=== PATIENT | female | born 1990 | race Caucasian/White ===

== ENCOUNTER 2016-12-17 20:57 | Inpatient (IN) | payer OTHER ==
[~2016-12-17] VITALS: Ht 175.3 cm; Wt 91.8 kg
[2016-12-17 21:02] VITALS: BP 142/80
[2016-12-17 21:03] VITALS: BP 142/80
[2016-12-17 21:14] VITALS: BP 138/82
[2016-12-17 22:23] LABS: MEAN CORPUSCULAR HEMOGLOBIN 29.2 pg (27.0-33.0); MEAN CORPUSCULAR VOLUME 85.9 fl (80.0-96.0); RED CELL DISTRIBUTION WIDTH 12.5 % (11.5-14.5); WHITE BLOOD COUNT 11.1 K/mm3 (4.0-10.0)
[2016-12-17 22:31] VITALS: BP 142/80
[2016-12-17 22:37] LABS: URIC ACID 4.5 MG/DL (2.6-6.0)
[2016-12-17 22:40] LABS: ALBUMIN 3.2 GM/DL (3.2-5.2); ALKALINE PHOSPHATASE 133 U/L (45-117); ALT/SGPT 57 U/L (12-78); ANION GAP 8 MEQ/L (8-16); AST/SGOT 42 U/L (15-37); BILIRUBIN,TOTAL 0.3 MG/DL (0.2-1.0); BLOOD UREA NITROGEN 10 MG/DL (7-18); CALCIUM LEVEL 9.6 MG/DL (8.5-10.1); CARBON DIOXIDE LEVEL 26 MEQ/L (21-32); CHLORIDE LEVEL 104 MEQ/L (98-107); CREATININE FOR GFR 0.66 MG/DL (0.55-1.02); GLOMERULAR FILTRATION RATE > 60.0 (>60); GLUCOSE, FASTING 89 MG/DL (70-105); SODIUM LEVEL 138 MEQ/L (136-145); TOTAL PROTEIN 7.2 GM/DL (6.4-8.2)
[2016-12-17] MEDS ORDERED: RHOGAM 300 MCG (1500 IU) INJ (J2790) IM SCH (23:15)
[2016-12-17] MEDS ORDERED: LORazepam 1 MG TAB PO PRN (23:15)
[2016-12-17] MEDS ORDERED: FENTANYL 2MCG/ML ROPIVACAINE 0.2% IN 0.9% NACL 200ML IVBAG As Ordered ONE (23:17)
[2016-12-17] MEDS: LR 1,000 ML IV SCH (23:30)
[2016-12-17 23:59] LABS: THYROXINE (T4) 18.9 UG/DL (4.5-12.0)
[2016-12-18] VITALS (55 sets, daily range): BP systolic 100–138; BP diastolic 51–87
[2016-12-18 00:19] LABS: BASO % 0.4 % (0.0-1.0); EOS # 0.2 K/mm3 (0.0-0.50); EOS % 1.4 % (0.0-3.0); LARGE UNSTAINED CELL # 0.3 K/mm3 (0.0-0.4); LARGE UNSTAINED CELL % 2.2 % (0.0-4.0); LYMPH # 3.2 K/mm3 (1.5-6.5); LYMPH % 25.4 % (24.0-44.0); MEAN CORPUSCULAR HEMOGLOBIN 29.5 pg (27.0-33.0); MEAN CORPUSCULAR HGB CONC 34.2 g/dl (32.0-36.5); MEAN CORPUSCULAR VOLUME 86.2 fl (80.0-96.0); MONO % 8.6 % (0.0-5.0); NEUTROPHILS # 7.3 K/mm3 (1.8-7.7); NEUTROPHILS % 61.9 % (36.0-66.0); PLATELET COUNT, AUTOMATED 328 k/mm3 (150-450); RED CELL DISTRIBUTION WIDTH 12.4 % (11.5-14.5); WHITE BLOOD COUNT 11.7 K/mm3 (4.0-10.0)
[2016-12-18] MEDS ORDERED: FENTANYL/ROPIVACAINE/NACL BAG 200 ML EPIDURAL SCH (00:55)
[2016-12-18] MEDS ORDERED: EPIDURAL COMMENT XX SCH (00:55)
[2016-12-18] MEDS ORDERED: diphenhydrAMINE INJ 50MG/ML VIAL (J1200) IV PRN (00:55)
[2016-12-18] MEDS ORDERED: EPIDURAL/PCA KEYS XX PRN (00:55)
[2016-12-18] MEDS ORDERED: ePHEDrine SULFATE 25 MG/5 ML(5MG/ML) SYRINGE IV PRN (00:55)
[2016-12-18] MEDS ORDERED: ONDANSETRON 4MG/2ML VIAL (J2405) IV PRN (00:55)
[2016-12-18] MEDS ORDERED: REFRIGERATOR IV KEYS XX PRN (00:55)
[2016-12-18] MEDS ORDERED: LACTATED RINGER'S 1000 ML IV PRN (00:55)
[2016-12-18] MEDS ORDERED: NALOXONE INJ 0.4 MG/1 ML VIAL (J2310) IV PRN (00:55)
[2016-12-18] MEDS ORDERED: miSOPROStol 200 MCG TAB (S0191) As Ordered ONE (01:57)
[2016-12-18] MEDS: miSOPROStol 200 MCG TAB (S0191) PV SCH ×2 (02:00→08:26)
[2016-12-18] MEDS ORDERED: ACETAMINOPHEN 500 MG TAB PO PRN (11:15)
[2016-12-18] MEDS: LR 1,000 ML IV SCH (11:28)
[2016-12-18] MEDS ORDERED: OXYTOCIN 30 UNITS IN 0.9% NaCl 500ML IV BAG (J2590) As Ordered ONE (13:44)
[2016-12-18] MEDS ORDERED: OXYTOCIN INJ 10 UNITS/ML VIAL (J2590) IV ONE (13:53)
[2016-12-18] MEDS ORDERED: IBUPROFEN 800 MG TAB PO PRN (14:30)
[2016-12-18] MEDS ORDERED: DIBUCAINE 1% OINTMENT 30GM TOP PRN (14:30)
[2016-12-18] MEDS ORDERED: METHYLERGONOVINE MALEATE 0.2 MG TAB PO PRN (14:30)
[2016-12-18] MEDS ORDERED: MOM 30ML SUSPENSION UDC PO PRN (14:30)
[2016-12-18] MEDS ORDERED: MEASLES,MUMPS,RUBELLA VACCINE INJ (MMR-II) (90707) SC SCH (14:30)
[2016-12-18] MEDS ORDERED: ANUSOL HC CREAM 30GM TOP PRN (14:30)
[2016-12-18] MEDS ORDERED: DOCUSATE SODIUM 100 MG CAP PO PRN (14:30)
[2016-12-18] MEDS ORDERED: ACET50TA PO (17:47)
[2016-12-18] MEDS ORDERED: IBUP-1114 PO (17:48)
[2016-12-18] MEDS ORDERED: OXYTOCIN DRIP 30 UNITS in APPROPRIATE DILUENT 1 EA IV SCH (19:45)
--- NOTE | 2016-12-18 22:51 | DN ---
DATE: 12/18/2016 This lady is a 2, now para 2, with known history of intrauterine demise (IUFD) at 27 and 3 weeks because of multiple anomalies. She came into labor mary ann and also a history of nausea and a bit of a fever. She had Cytotec times two. Had an epidural in place. It was replaced, and so she had two epidurals. She had a spontaneous vaginal delivery of a stillborn female in the caul. scores of 0 and 0 at one and five minutes, respectively. Weight of baby was 1 pound 5 ounces, 588 grams. Placenta and the baby were all within the same sac. Placenta was sent off to pathology under separate cover. The patient has declined autopsy. The examination of the vulva, the vagina, and the cervix all appeared to be normal. The uterus contracted well down on Pitocin. The patient was left with her and baby for grief counseling and for a significant period of time with the baby wrapped in blankets. The patient tolerated the procedure well. She was offered anti-anxiety medication, which she declined, and she was offered to go home at any time after being here for at least 2 hours.
--- NOTE | 2016-12-18 23:05 | DSES ---
DATE OF ADMISSION: 12/17/2016 DATE OF DISCHARGE: 12/18/2016 This lady is the 26-year-old 3, para 1 with an last menstrual period (LMP) of 06/08/2016 and estimated date of confinement (EDC) of 03/15/2017, admitted to labor and delivery at 27 and 3 weeks of gestation with a history of contractions, episode of fever, and a bit of shortness of breath and nausea. She was booked at [facility] ( care) for induction of labor because of known intrauterine demise. Her course was unremarkable. Her past history is in October 2013 at 39 weeks, spontaneous vaginal delivery with epidural, a live female, 8 pounds 7 ounces, induced. In April 2016 had a spontaneous with no dilatation and curettage (D and C). PAST SURGICAL HISTORY: 1. She had wisdom teeth removed at age 19. 2. Tonsils and adenoids in 2007. She has no other prevailing issues. She has no medical issues. No other surgical issues. She had four visits at the clinic. She was seen in [facility] for counseling. Her lab work was unremarkable. Blood work was O positive, HIV negative, hepatitis negative, RPR negative, rubella immune. Varicella by history. Pap was normal. Human papillomavirus (HPV) negative. Urine negative. Gonorrhea and chlamydia are negative. No early 1-hour glucose was done. She was not yet at an interval for 1-hour GTT. She has no history of hypertension or renal vascular disease. She has not experienced any vaginal bleeding or leaking of fluid. She does not have any fevers or rashes in . She has no teratogenic exposures. Her period was accurate. Her early ultrasound confirmed her and family are negative for chromosomal problems, defects, or single-gene disorders, and there is no history of recurrent loss. It was known on ultrasound by P and C that there was a lag in the growth by 3 weeks, and there was possibility of growth restriction or small for gestational age. There was known to be multiple calcifications in the placenta and multiple echogenic foci in the bowel but none in the heart. The patient did have FISH test and an amniocentesis and cystic fibrosis (CF) test. She also had evaluation of her toxoplasmosis, Cytomegalovirus (CMV), IgG and IgM. She had an 18-pound weight gain over her four visits. She does not smoke or drink. She does not use recreational drugs, and there is no domestic violence. Her is in the [employer]. She was admitted with prodromal contractions, and we elected to keep her. Cytotec times two was used. She had an epidural in place, had a spontaneous vaginal delivery of a female , 588 grams, 1 pound 5 ounces, scores of 0 and 0 one at one and five minutes respectfully. Baby and placenta were born in a caul. Placenta was sent off to pathology under separate cover. Appropriate lab testings for an intrauterine demise (IUFD) were done. She tolerated the procedure well. We offered her some grief counseling. We offered her antianxiety medication. The patient has good support service from her , and they left 2-1/2 to 3 hours after delivery to follow and contact the office in 48-72 hours. She was counseled regarding bleeding, infection, fever, and if she has significant depressive elements to call immediately for support from us as well as her family. In summary, we have a 26-year-old 3, now para 2, who had an IUFD at 27 and 3 weeks of gestation. Known effects were intrauterine growth restriction (IUGR), decreased fluid echogenic bowel foci, and calcified placenta. Her FISH test was negative, and her chromosomal analysis was normal.
[2016-12-19] MEDS ORDERED: PRENATAL VITAMIN TAB PO SCH (09:00)
== END 2016-12-18 18:05 | disposition home or self-care (01) | DRG 775 ==
LOC: M LDO 20:57 → M LDI 23:09
PROVIDERS: ADMIT Obstetrics & Gynecology; ATTEND Obstetrics & Gynecology
PROC: 3E0P7GC Introduction of Other Therapeutic Substance into Female Reproductive, Via Natural or Artificial Opening (ICD-10-PCS; 2016-12-17)
PROC: 10E0XZZ Delivery of Products of Conception, External Approach (ICD-10-PCS; principal; 2016-12-18)
DX: O36.4XX0 Maternal care for intrauterine death, not applicable or unspecified (principal); O41.1220 Chorioamnionitis, second trimester, not applicable or unspecified; Z3A.27 27 weeks gestation of pregnancy; O36.5920 Maternal care for other known or suspected poor fetal growth, second trimester, not applicable or unspecified; O43.892 Other placental disorders, second trimester; Z37.1 Single stillbirth